=== PATIENT | male | born 1990 | race Caucasian/White ===

== ENCOUNTER 2017-11-23 13:22 | Emergency (ER) | payer BC ==
[2017-11-23 13:51] VITALS: BP 111/73
--- NOTE | 2017-11-23 14:06 | UC ---
Knee Pain HPI - HPI Summary HPI Summary: patient had previous left knee injury----seen in ED and did not follow with orthopedic MD in 2013. Has been working a lot at [employer] has developed pain and swelling in left knee (medial pain)--patient reports no specific recent injury or trauma - History of Current Complaint Hx Obtained From: Patient Onset/Duration: Sudden Onset Location Of Injury: left knee Pain Intensity: 2 Pain Scale Used: 0-10 Numeric Character: Aching Aggravating Factor(s): Movement, Weight Bearing Associated Signs And Symptoms: Positive: Negative Able to Bear Weight: Yes <Clara Piper - Last Filed: 11/23/17 15:29> <Fatou Cisse - Last Filed: 11/23/17 17:38> - History of Current Complaint Chief Complaint: UCLowerExtremity Stated Complaint: LEFT KNEE PAIN Time Seen by Provider: 11/23/17 13:40 - Allergies/Home Medications Allergies/Adverse Reactions: Allergies Allergy/AdvReac Type Severity Reaction Status Date / Time No Known Allergies Allergy Verified 11/23/17 13:39 PMH/Surg Hx/FS Hx/Imm Hx Previously Healthy: Yes - Surgical History Surgical History: Yes - Family History Known Family History: Positive: None - Social History Occupation: Employed Full-time Lives: With Family Alcohol Use: Occasionally Substance Use Type: None Smoking Status (MU): Never Smoked Tobacco <Clara Piper - Last Filed: 11/23/17 15:29> Review of Systems Constitutional: Negative Skin: Negative Eyes: Negative ENT: Negative Respiratory: Negative Cardiovascular: Negative Gastrointestinal: Negative Genitourinary: Negative Motor: Negative Neurovascular: Negative Musculoskeletal: Arthralgia - left medial knee pain Neurological: Negative Psychological: Negative Is Patient Immunocompromised?: No All Other Systems Reviewed And Are Negative: Yes <Clara Piper - Last Filed: 11/23/17 15:29> Physical Exam Triage Information Reviewed: Yes Appearance: Well-Appearing, No Pain Distress, Well-Nourished Vital Signs: Initial Vital Signs Temp 98.1 F 11/23/17 13:39 Pulse 68 11/23/17 13:39 Resp 16 11/23/17 13:39 BP 111/73 11/23/17 13:39 Pulse Ox 99 11/23/17 13:39 Vital Signs Reviewed: Yes Eye Exam: Normal Eyes: Positive: Conjunctiva Clear ENT Exam: Normal ENT: Positive: Normal ENT inspection, Hearing grossly normal. Negative: Trismus , Muffled voice, Hoarse voice Dental Exam: Normal Neck exam: Normal Neck: Positive: Supple, Nontender Respiratory Exam: Normal Respiratory: Positive: Chest non-tender, No respiratory distress, No accessory muscle use Cardiovascular Exam: Normal Cardiovascular: Positive: RRR, Pulses Normal, Brisk Capillary Refill Musculoskeletal Exam: Normal Musculoskeletal: Positive: Strength Intact, ROM Intact, No Edema Neurological Exam: Normal Neurological: Positive: Alert, Muscle Tone Normal Psychological Exam: Normal Skin Exam: Normal <Clara Piepr - Last Filed: 11/23/17 15:29> Vital Signs: Initial Vital Signs Temp 98.1 F 11/23/17 13:39 Pulse 68 11/23/17 13:39 Resp 16 11/23/17 13:39 BP 111/73 11/23/17 13:39 Pulse Ox 99 11/23/17 13:39 <Fatou Cisse - Last Filed: 11/23/17 17:38> Diagnostics - Radiology No standard instances Xray Interpretation: Positive (See Comments) - Patient Name: MALATHI REYNOSO Medical Record#: [id number] Ordering Physician: Clara Piper OPERATIONS LEAD Acct.#: [id number] : 1990 Age: 27 Sex: M Location: [facility] Exam Date: 11/23/17 1406 ADM Status: REG ER Order Information: KNEE LEFT 4+ VWS Accession Number: [id number] CPT: 54683 Indication: LEFT knee pain and swelling for 2 weeks without recent injury. Remote injury. Comparison: No relevant prior exams available on the [facility] PACS for comparison. Technique: LEFT knee: AP, tunnel, lateral, sunrise views. Report: Negative for effusion, fracture, or malalignment. Minimal osteophytosis at the medial joint compartment and equivocal mild joint space narrowing. Unremarkable soft tissue contours. IMPRESSION: 1. No acute traumatic injury evident. 2. Suggestion of early mild degenerative arthropathy at the medial joint compartment. <Electronically signed by Alhaji Gannon MD in [place]> 11/23/171452 Dictated By: Alhaji Gannon MD Dictated Date/ Time: 11/23/17 145 Transcribed Date/Time: 11/23/17 145 Copy to: CC:Clara Piper OPERATIONS LEAD; Fatou Cisse MD; No Primary Care Phys,NOPCP Imaging - [facility] Imaging - [facility] Care Imaging - [facility] [address] [address] ph [phone]) ph [phone] ph ([phone]) 1 of Radiology Interpretation Completed By: Radiologist <Clara Piper - Last Filed: 11/23/17 15:29> Knee Pain Course/Dx - Course Course Of Treatment: knee immoblizere, nsaids follow with orthopedic MD this week - Differential Dx/Diagnosis Provider Diagnoses: acute exacerbation of left knee pain <Clara Piper - Last Filed: 11/23/17 15:29> Discharge - Sign-Out/Discharge Documenting (check all that apply): Discharge/Admit/Transfer - Billing Disposition and Condition Condition: STABLE Disposition: HOME <Clara Piper - Last Filed: 11/23/17 15:29> - Billing Disposition and Condition Condition: STABLE Disposition: HOME <Fatou Cisse - Last Filed: 11/23/17 17:38> - Discharge Plan Condition: Stable Disposition: HOME Prescriptions: Naproxen [Naproxen 500 mg tab] 500 mg PO BID PRN #40 tab PRN Reason: Pain Patient Education Materials: Osteoarthritis (ED), Knee Pain (ED), R.I.C.E. Treatment (ED) Forms: *Work Release Referrals: Garcia Zaldivar MD [Medical Doctor] - 3 Days Attestation Statement User Type: Provider - I was available for consult. This patient was seen by the DAGO. The patient was not presented to, seen by, or examined by me. -Ljj <Fatou Cisse - Last Filed: 11/23/17 17:38>
--- NOTE | 2017-11-23 14:56 | RAD ---
Indication: LEFT knee pain and swelling for 2 weeks without recent injury. Remote injury. Comparison: No relevant prior exams available on the [facility] PACS for comparison. Technique: LEFT knee: AP, tunnel, lateral, sunrise views. Report: Negative for effusion, fracture, or malalignment. Minimal osteophytosis at the medial joint compartment and equivocal mild joint space narrowing. Unremarkable soft tissue contours. IMPRESSION: 1. No acute traumatic injury evident. 2. Suggestion of early mild degenerative arthropathy at the medial joint compartment.
== END 2017-11-23 15:31 | disposition home or self-care (01) ==
LOC: UCCORT 13:22
DX: M25.562 Pain in left knee (principal)
CPT/HCPCS: 99202; G0463

== ENCOUNTER 2019-06-05 08:24 | Emergency (ER) | payer BC ==
--- OUTSIDE RECORDS SUMMARY | 2019-06-05 08:32 | XMS REPORT | Continuity of Care Document ---
:1990 External Reference #:[id number] Author Name Berta Terrell FNP (transmitted by agent of provider Pebbles Otto) Address [address] [place] [id number] Care Team Providers Name Role Phone Berta Terrell FNP - Family Care Team Information Sales And Business Development Manager [phone] Problems Description No Information Available Social History Type Date Description Comments Sex Unknown ETOH Use Currently consumes alcohol socially Tobacco Use Start: Unknown End: Patient is a former Unknown smoker Recreational Drug Use Denies Drug Use Tobacco Use Start: Unknown End: Patient is a former Smoked 8 year quit Unknown smoker at 20. Smoking Status Reviewed: 04/02/19 Patient is a former Smoked 8 year quit smoker at 20. Allergies, Adverse Reactions, Alerts Description No Known Drug Allergies Medications Active Medications SIG Qnty Indications Ordering Provider Date Famotidine take 1 tablet 120tabs K21.9 Berta Terrell FNP 09/24/2018 20mg Tablets twice daily Immunizations Description No Information Available Vital Signs Date Vital Result Comment 04/02/2019 9:51am BP Systolic Sitting Left Arm 118 mmHg BP Diastolic Sitting Left Arm 76 mmHg Body Temperature 97.6 F Heart Rate 76 /min Respiratory Rate 18 /min Height 69 inches 5'9" Weight 226.50 lb BMI (Body Mass Index) 33.4 kg/m2 BSA (Body Surface Area) 2.18 m2 [place] body weight in kilograms 73 kg O2 % BldC Oximetry 98 % 12/23/2018 2:46pm BP Systolic 120 mmHg BP Diastolic 76 mmHg Body Temperature 97.9 F Heart Rate 92 /min Height 69 inches 5'9" Weight 223.00 lb BMI (Body Mass Index) 32.9 kg/m2 BSA (Body Surface Area) 2.16 m2 [place] body weight in kilograms 73 kg O2 % BldC Oximetry 96 % Pain Level 0 Results Test Date Facility Test Result H/L Range Note Urine Dipstick 04/02/2019 [facility]a Leuko - Negative Ua Nitrite - Negative Ua Urobilinogen .2 0.2 - 1.0 E.U./dL Ua Protein trace Negative Ua PH 7 6.5-7.5 Ua Blood - Negative Ua Specific [place] 1.015 1.010-1.030 Ua Ketones - Negative Ua Bilirubin - Negative Ua Glucose - Negative Glycohemoglobin 11/07/[address] Glycohemoglobin 5.4 % Normal 4.2-6.3 1, [address] [facility] (A1c) [place], [place] [id number] [phone] eAG 108 mg/dL LDL Cholesterol Profile 11/07/[address] Cholesterol 192 mg/dL <200 3 [address] [place], [place] [id number] [phone] Triglycerides 560 mg/dL High <150 4 HDL Cholesterol 27 mg/dL Low >40 5 LDL-Cholesterol TNP mg/dL < 100 6 Comprehensive 11/07/[address] Glucose 96 mg/dL Normal 74-106 Metabolic Panel [address] [place], [place] [id number] [phone] BUN 22 mg/dL High 7-18 Creatinine 1.0 mg/dL Normal 0.6-1.3 Glom Filtration Rate, Estimate >60 mL/min >60 If >60 mL/min >60 7 BUN/Creat 22.0 ratio Sodium 139 mmol/L Normal 136-145 Potassium 4.3 mmol/L Normal 3.5-5.1 Chloride 107 mmol/L Normal 98-107 Carbon Dioxide 26 mmol/L Normal 21-32 Anion Gap 6 mEq/L Low 8-16 Calcium 9.0 mg/dL Normal 8.5-10.1 Total Protein 7.9 g/dL Normal 6.4-8.2 Albumin 4.0 g/dL Normal 3.4-5.0 Globulin 3.9 g/dL Normal 1.9-4.3 Alb/Glob 1.0 ratio Bilirubin,Total 0.2 mg/dL Normal 0.2-1.0 Sgot/Ast 16 U/L Normal 15-37 SGPT/Alt 25 U/L Normal 12-78 Alkaline Phosphatase 87 U/L Normal 45-117 1 Z13.1 2 Elevated levels of HbA1c suggest the need for more aggressive treatment of glycemia. The [place] [employer] recommends that a primary goal of therapy should be a HbA1c of <7% and that physicians should re-evaluate the treatment regimen in patients with HbA1c values consistently >8%. 3 Reference Guidelines*: Desirable: ........... < 200 mg/dL Borderline High: ..... 200-239 mg/dL High: ................ >= 240 mg/dL * The National Cholesterol Education Program (NCEP) 4 Reference Guidelines*: Normal: ............. < 150 mg/dL Borderline High: .... 150-199 mg/dL High: ............... 200-499 mg/dL Very High: .......... > 500 mg/dL * Source: National Cholesterol Education Program (NCEP) 5 Reference Guidelines*: Low HDL: ..... < 40 mg/dL Normal: ..... 40-60 mg/dL Desirable: ... > 60 mg/dL *The National Cholesterol Education Program(NCEP) 6 (LDL CANNOT BE CALCULATED FOR TRIGS >400 mg/dL) 7 Note: Persistent reduction for 3 months or more in an eGFR <60 mL/min/1.73 m2 defines CKD. Patients with eGFR values >/=60 mL/min/1.73 m2 may also have CKD if evidence of persistent proteinuria is present. The original MDRD equation for estimated GFR is not valid for patients less than 18 years of age. Additional information may be found at www.kdoqi.org. Procedures Date Code Description Status 04/02/2019 76655 EKG-Tracing And Report Completed Medical Devices Description No Information Available Encounters Type Date Location Provider Dx Diagnosis Office Visit 04/02/2019 Berta Prater FNP R55 Syncope and 10:[address] collapse K21.9 Gastro-esophageal reflux disease without esophagitis Office Visit 12/23/2018 3:00p Berta Prater R55 Syncope and [facility]bert KHOURY collapse Office Visit 11/07/2018 8:30a Berta Prater R55 Syncope and [place] [facility] K[facility]OUR[facility] collapse Z13.1 Encounter for screening for diabetes mellitus Assessments Date Code Description Provider 04/02/2019 R55 Syncope and collapse Berta Terrell FNP 04/02/2019 K21.9 Gastro-esophageal reflux disease without Berta Terrell FNP esophagitis 12/23/2018 R55 Syncope and collapse Berta Terrell FNP 11/07/2018 R55 Syncope and collapse Berta Terrell FNP 11/07/2018 Z13.1 Encounter for screening for diabetes mellitus Berta Terrell FNP Plan of Treatment Future Appointment(s):06/04/2019 9:30 am - Berta Terrell FNP at [facility]04/02/2019 - Berta Terrell [id number] Syncope and collapseNew Orders :EKG, Ordered: 04/02/19Comments:EEG and MRI were negative for epilepsy, brain tumor.Has been taken off seizure medication.EKG today to rule out cardiac issue , although not having syncope lately.Blood work from last time was normal besides high cholesterol which we discussed.Could be psychogenic seizures, which are often stress induced. If that is the case, making sure you are sleeping enough (7-9 hours unbroken) and managing stressin a way that you can do daily (walking, yoga, meditation, deep breathing, therapy, etc.) is important.Follow up:2mo acid [id number] Gastro-esophageal reflux disease without esophagitisComments:Never picked up the famotidine to try it.Resent this today, begin taking this and f/u 2 months to see if it is helping.Please avoid tomato based products, citrus, caffeine, carbonated beverages, mints, chocolate, alcohol, spicy foods.You may consider putting a cinder block under your mattress to raisethe head of your bed.Avoid eating in the 3 hours before bedtime. Functional Status Functional Condition Comment Date Status Independent with all ADL's Active Mental Status Description No Information Available Referrals Description No Information Available
[2019-06-05 08:38] VITALS: BP 130/77
--- NOTE | 2019-06-05 09:27 | UC ---
Eye Complaint HPI - HPI Summary HPI Summary: 29 yo who awoke with crusting eye discharge this morning but mild visual blurring but no photophobia. His children recently had treatment of conjunctivitis. - History of Current Complaint Chief Complaint: UCEye Stated Complaint: RT EYE CONCERN Time Seen by Provider: 06/05/19 09:20 Hx Obtained From: Patient Onset/Duration: Sudden Onset, Lasting Hours Timing: Constant Severity Initially: Mild Severity Currently: Mild Pain Intensity: 2 Location of Injury: Conjunctiva Aggravating Factor(s): Nothing Alleviating Factor(s): Nothing Associated Signs And Symptoms: Positive: Drainage (Purulent), Vision Impairment Right - Risk Factors Penetrating Injury Risk Factor: Negative Globe Rupture Risk Factors: Negative Acute Glaucoma Risk Factors: Negative Optic Artery Occlusion Risk Factors: Negative - Allergies/Home Medications Allergies/Adverse Reactions: Allergies Allergy/AdvReac Type Severity Reaction Status Date / Time No Known Allergies Allergy Verified 06/05/19 08:38 Home Medications: Home Medications Omeprazole 1 dose PO DAILY 06/05/19 [History Confirmed 06/05/19] PMH/Surg Hx/FS Hx/Imm Hx Previously Healthy: Yes GI/ History: Gastroesophageal Reflux - Surgical History Surgical History: Yes Surgery Procedure, Year, and Place: SURGERY A TO A PROBLEM WITH HIS ESOPHAGUS. TORN ACL-LEFT - Family History Known Family History: Positive: None - Social History Occupation: Employed Full-time Lives: With Family Alcohol Use: None Substance Use Type: None Smoking Status (MU): Never Smoked Tobacco Review of Systems All Other Systems Reviewed And Are Negative: Yes Constitutional: Positive: Negative Skin: Positive: Negative Eyes: Positive: Blurred Vision, Drainage ENT: Positive: Negative Respiratory: Positive: Negative Cardiovascular: Positive: Negative Gastrointestinal: Positive: Other - just began omeprazole yesterday Genitourinary: Positive: Negative Motor: Positive: Negative Neurovascular: Positive: Negative Musculoskeletal: Positive: Negative Neurological: Positive: Negative Psychological: Positive: Negative Is Patient Immunocompromised?: No Physical Exam Triage Information Reviewed: Yes Appearance: Well-Appearing, No Pain Distress Vital Signs: Initial Vital Signs Temp 97.3 F 06/05/19 08:36 Pulse 73 06/05/19 08:36 Resp 15 06/05/19 08:36 BP 130/77 06/05/19 08:36 Pulse Ox 98 06/05/19 08:36 Eye Exam: Other - MOON, no photophobia. Normal lids Eyes: Positive: Conjunctiva Inflamed - right eye, with crusting discharge ENT: Positive: Pharynx normal, TMs normal Respiratory: Positive: Lungs clear, Normal breath sounds Cardiovascular: Positive: RRR, No Murmur Musculoskeletal Exam: Normal Neurological: Positive: Alert Psychological Exam: Normal Skin Exam: Normal Eye Complaint Course/Dx - Course Course Of Treatment: Polytrim for treatment of acute conjunctivitis. - Differential Dx/Diagnosis Differential Diagnosis/HQI/PQRI: Conjunctivitis, Corneal Abrasion Provider Diagnosis: Conjunctivitis, right eye Discharge ED - Sign-Out/Discharge Documenting (check all that apply): Patient Departure All imaging exams completed and their final reports reviewed: No Studies - Discharge Plan Condition: Good Disposition: HOME Prescriptions: Polymyx/Trimethoprim OPTH* [Polytrim OPHTH*] 2 drop RIGHT EYE Q3H #1 btl Patient Education Materials: Conjunctivitis (ED) Forms: *Work Release Referrals: No Primary Care Phys,NOPCP [Primary Care Provider] - Additional Instructions: Begin use of antibiotic drops, placing drops in the right eye every 2 hours today, then 4 times daily for 5 days. I suggest treating the left eye as well with one drop at the same time in order to prevent spread to the left eye. Compress your eye with a warm compress for 5 minutes 3 or 4 times today. - Billing Disposition and Condition Condition: GOOD Disposition: Home
== END 2019-06-05 09:40 | disposition home or self-care (01) ==
LOC: UCCORT 08:24
DX: H10.9 Unspecified conjunctivitis (principal); K21.9 Gastro-esophageal reflux disease without esophagitis; Z79.899 Other long term (current) drug therapy
CPT/HCPCS: 99212; G0463